=== PATIENT | male | born 1940 | race Caucasian/White ===

== ENCOUNTER 2017-12-27 07:33 | Inpatient (IN) | payer OTHER, MEDICAID ==
[~2017-12-27] VITALS: Ht 162.6 cm; Wt 79.6 kg
[2017-12-27 07:36] VITALS: Ht 162.6 cm; Wt 79.6 kg
[2017-12-27 08:11] LABS: BASOPHIL % 0.1 % (0-2); PLATELET COUNT 135 x10^3mcL (130-400); RED CELL DISTRIBUTION WIDTH 12.9 % (11.5-14.5)
[2017-12-27 08:24] LABS: CALCIUM 8.4 mg/dL (8.5-10.1); CARBON DIOXIDE 26.6 mmol/L (21-32); CHLORIDE SERUM 107 mmol/L (98-107); GLUCOSE SERUM 111 mg/dL (74-106); POTASSIUM SERUM 3.8 mmol/L (3.5-5.1); SODIUM SERUM 143 mmol/L (136-145)
[2017-12-27 08:29] LABS: ALBUMIN 3.4 g/dL (3.4-5.0); ALKALINE PHOSPHATASE 109 U/L (46-116); ALT/SGPT 22 U/L (16-63); AST/SGOT 25 U/L (15-37); BILIRUBIN TOTAL 0.73 mg/dL (0.20-1.00); TOTAL PROTEIN, SERUM 7.1 g/dL (6.4-8.2)
[2017-12-27] MEDS ORDERED: CARD1 PO (09:55)
[2017-12-27 10:54] LABS: microscopic required? YES; urine erythrocyte NEGATIVE (NEGATIVE)
[2017-12-27 11:16] VITALS: BP 108/45
[2017-12-27 11:44] LABS: PHOSPHOROUS 2.7 mg/dL (2.5-4.9)
[2017-12-27 11:48] LABS: CHOLESTEROL/HDL RATIO 2.2
[2017-12-27 11:53] LABS: FREE T4 1.2 ng/dL (0.76-1.46); FREE THYROXINE INDEX 2.9 ug/dL (1.4-4.5); T4(THYROXINE) 8.3 ug/dL (4.7-13.3)
[2017-12-27 13:41] VITALS: BP 93/43
[2017-12-27 14:03] LABS: T3 TOTAL 1.13 ng/mL
[2017-12-27 14:39] VITALS: BP 93/43
[2017-12-27 18:01] VITALS: BP 121/57
[2017-12-27 21:22] VITALS: BP 107/53
[2017-12-28 05:22] VITALS: BP 133/67
[2017-12-28 07:17] LABS: BASOPHIL % 0.3 % (0-2); PLATELET COUNT 155 x10^3mcL (130-400); RED CELL DISTRIBUTION WIDTH 13.1 % (11.5-14.5)
[2017-12-28 07:50] LABS: CALCIUM 8.1 mg/dL (8.5-10.1); CARBON DIOXIDE 26.5 mmol/L (21-32); CHLORIDE SERUM 105 mmol/L (98-107); GLUCOSE SERUM 102 mg/dL (74-106); MAGNESIUM 1.8 mg/dL (1.8-2.4); PHOSPHOROUS 2.5 mg/dL (2.5-4.9); POTASSIUM SERUM 4.3 mmol/L (3.5-5.1); SODIUM SERUM 138 mmol/L (136-145)
[2017-12-28 09:22] VITALS: BP 111/53
[2017-12-28 12:46] VITALS: BP 133/88
[2017-12-28 18:01] VITALS: BP 131/71
[2017-12-28 20:45] VITALS: BP 109/60
[2017-12-29 05:42] VITALS: BP 131/67
[2017-12-29 07:04] LABS: CALCIUM 8.2 mg/dL (8.5-10.1); CARBON DIOXIDE 25.8 mmol/L (21-32); CHLORIDE SERUM 108 mmol/L (98-107); CREATININE SERUM 0.9 mg/dL (0.7-1.3); GLUCOSE SERUM 103 mg/dL (74-106); MAGNESIUM 1.8 mg/dL (1.8-2.4); PHOSPHOROUS 2.9 mg/dL (2.5-4.9); POTASSIUM SERUM 4.2 mmol/L (3.5-5.1); SODIUM SERUM 142 mmol/L (136-145)
[2017-12-29 07:31] LABS: BASOPHIL % 0.4 % (0-2); PLATELET COUNT 150 x10^3mcL (130-400); RED CELL DISTRIBUTION WIDTH 13.3 % (11.5-14.5)
[2017-12-29 10:31] VITALS: BP 113/57
[2017-12-29 13:20] VITALS: BP 108/72
[2017-12-29] MEDS ORDERED: LEVAQUIN750 MG PO (14:32)
[2017-12-29] MEDS ORDERED: CLEOCIN HCL300 MG PO (14:32)
[2017-12-29] MEDS ORDERED: LAC PO (14:33)
[2017-12-29 14:49] VITALS: BP 108/72
== END 2017-12-29 15:45 | disposition home or self-care (01) | DRG 177 ==
LOC: ED 07:33 → DU 09:55
PROVIDERS: Emergency Medicine; Family Medicine; Student in an Organized Health Care Education/Training Program
DX: J69.0 Pneumonitis due to inhalation of food and vomit (principal); N17.0 Acute kidney failure with tubular necrosis; E86.0 Dehydration; J32.9 Chronic sinusitis, unspecified; N40.0 Benign prostatic hyperplasia without lower urinary tract symptoms; R80.9 Proteinuria, unspecified; E78.5 Hyperlipidemia, unspecified; E87.8 Other disorders of electrolyte and fluid balance, not elsewhere classified; Z68.29 Body mass index [BMI] 29.0-29.9, adult
CPT/HCPCS: 83880; 84439; 87046; 87046-59; 94150; C9113; J0696; J1956; J3490; J7030; Q0092

== ENCOUNTER 2019-07-18 08:22 | Emergency (ER) | payer OTHER, MEDICAID ==
[~2019-07-18] VITALS: Ht 165.1 cm; Wt 80.5 kg
[~2019-07-18 08:22] MED LIST: CARD1 PO; CLEOCIN HCL300 MG PO; LAC PO; LEVAQUIN750 MG PO
[2019-07-18 08:39] VITALS: Ht 165.1 cm; Wt 80.5 kg
[2019-07-18 11:00] VITALS: BP 135/66
== END 2019-07-18 11:00 | disposition home or self-care (01) ==
LOC: ED 08:22
DX: N39.0 Urinary tract infection, site not specified (principal); I10 Essential (primary) hypertension; R51 Headache; R05 Cough
CPT/HCPCS: J1885